=== PATIENT | female | born 1950 | race Caucasian/White ===

== ENCOUNTER 2017-04-25 07:48 | Day surgery (SDC) | payer MEDICARE, MEDICAID ==
[2017-04-21 15:34] LABS: BASOPHILS % (AUTO) 0.7 % (0-1); EOSINOPHILS # (AUTO) 0.3 X10'3 (0-0.9); EOSINOPHILS % (AUTO) 4.6 % (0-6); LYMPHOCYTES % (AUTO) 18.8 % (21-51); MEAN CORPUSCULAR HEMOGLOBIN 29.2 PG (27.0-31.0); MEAN CORPUSCULAR HGB CONC 34.8 % (33.0-36.5); MEAN CORPUSCULAR VOLUME 83.9 FL (78-98); MONOCYTES # (AUTO) 0.4 X10'3 (0-0.9); MONOCYTES % (AUTO) 6.5 % (2-12); NEUTROPHILS # (AUTO) 3.8 X10'3 (1.8-7.7); NEUTROPHILS % (AUTO) 69.4 % (42-75); PRE OP HEMATOCRIT 28.8 % (35.0-45.0); RED BLOOD COUNT 3.43 X10'6 (4.20-5.60); RED CELL DISTRIBUTION WIDTH 15.1 % (11.5-14.5)
[2017-04-21 15:47] LABS: PRE OP PROTIME 10.7 SECONDS (9.0-12.0)
[2017-04-21 15:53] LABS: PRE OP PLATELET COUNT 99 X10'3 (140-440)
[2017-04-21 15:56] LABS: ALBUMIN 3.9 G/DL (3.4-5.0); ALKALINE PHOSPHATASE 155 IU/L (46-116); BLOOD UREA NITROGEN 47 MG/DL (7-18); BUN/CREATININE RATIO 26.1 (6.6-38.0); CHLORIDE 105 MMOL/L (99-107); PRE OP ALT 11 U/L (30-65); PRE OP ANION GAP 13 (8-16); PRE OP AST 6 U/L (10-37); PRE OP BILIRUB, TOTAL 0.3 MG/DL (0.0-1.0); PRE OP POTASSIUM 4.7 MMOL/L (3.4-5.1); PRE OP SODIUM 144 MMOL/L (135-145); TOTAL CARBON DIOXIDE 25.7 MMOL/L (24-32); TOTAL PROTEIN 7.8 G/DL (6.4-8.2); eGFR 28 ML/MIN
[2017-04-21 15:58] LABS: PRE OP GLUCOSE 242 MG/DL (70-104)
[2017-04-21 15:59] LABS: HEMOGLOBIN A1C 6.4 % (4.5-6.2)
[~2017-04-25] VITALS: Ht 154.9 cm; Wt 92.7 kg
[2017-04-25] VITALS (18 sets, daily range): BP systolic 109–140; BP diastolic 57–78
[~2017-04-25 07:48] MED LIST: ALB0.5UD IH; ASPI81TA30 PO; CYCL-1 PO; DOCU100C23 PO; FERR325T39 PO; FLUT1AER INH; FURO40TA4 PO; GABA600T2 PO; GEMF600T3 PO; INSU100V5 SQ; LANTUS SQ; LINA5TAB4 PO; LISI40TA4 PO; LORA1TAB PO; MONT10TA21 PO; MORP60CA18 PO; MSC30T PO; NITR0.4T51 SL; OMEP20TA5 PO; OXCA300T PO; OXYC-658 PO; OXYGEN NS; POTA20TA19 PO; SIMV40TA4 PO; SPIIN IH; TIZA2TAB4 PO; VALA100027 PO; ceFOXitin 1 GM ADDVANTAGE BAG 1,000 MG in normal saline 100ml IV soln 100 ML IV ONE; famotidine 20mg tablet PO ONE
[2017-04-25] MEDS ORDERED: LIDOcaine 1% (10mg/ml) 2ml vial ONE (08:18)
[2017-04-25] MEDS ORDERED: ceFAZolin 1000mg inj ONE (08:57)
[2017-04-25] MEDS ORDERED: vasoPRESSIN 20 units/ml inj. ONE (08:57)
[2017-04-25] MEDS ORDERED: clindamycin phosphate 40gm vag cream ONE (08:57)
[2017-04-25] MEDS ORDERED: ringers solution, lacted 1,000 ML IV SCH ×2 (09:19→10:29)
[2017-04-25] MEDS ORDERED: fentaNYL/PF 50MCG/1 ML 2ML syringe ONE (09:49)
[2017-04-25] MEDS ORDERED: MIDAZolam 5mg/5ml vial ONE (09:49)
[2017-04-25] MEDS ORDERED: proCHLORperazine 10 MG/2 ml inj IV PRN (10:30)
[2017-04-25] MEDS ORDERED: meperidine/PF 25mg/ml syringe IV PRN ×3 (10:30)
[2017-04-25] MEDS ORDERED: morphine 2 MG/ML inj. syringe IV PRN ×2 (10:30)
[2017-04-25] MEDS ORDERED: ondansetron/PF 4mg/2ml inj IV PRN ×2 (10:30→11:15)
[2017-04-25] MEDS ORDERED: fluoroscein sod 10% (100mg/ml) 5ml vial ONE (10:52)
[2017-04-25] MEDS ORDERED: ketorolac tromethamine 15mg/ml inj. IV PRN (11:15)
[2017-04-25] MEDS ORDERED: temazepam 15mg capsule PO PRN (11:15)
[2017-04-25] MEDS ORDERED: magnesium hydroxide 30ml (MOM) UD suspension PO PRN (11:15)
[2017-04-25] MEDS ORDERED: HYDROcodone/acetaminophen 5mg/325mg tablet PO PRN (11:15)
[2017-04-25] MEDS ORDERED: normal saline 500ml IV soln 500 ML IV PRN (11:15)
[2017-04-25] MEDS ORDERED: diphenhydrAMINE 50 mg/ml inj IV PRN (11:15)
[2017-04-25] MEDS ORDERED: CADD PCA waste documentation MC PRN (11:15)
[2017-04-25] MEDS ORDERED: naloxone 0.4 mg/ml inj IV PRN (11:15)
[2017-04-25] MEDS ORDERED: albuterol 2.5 MG/3 ML nebule NEB PRN (11:15)
[2017-04-25] MEDS: HYDROmorphone/NS 1 mg/ml CADD 50 ML IV SCH ×7 (12:56→23:00)
[2017-04-25] MEDS: simethicone 80mg chew tab PO SCH ×2 (13:00→17:10)
[2017-04-25] MEDS: ringers solution, lacted 1,000 ML IV SCH ×2 (13:25→20:36)
[2017-04-25] MEDS ORDERED: glucagon, human recombinant 1mg kit SUBCUT PRN (13:35)
[2017-04-25] MEDS ORDERED: insulin Lispro (HumaLOG) vial - multi-dose SQ SCH (13:35)
[2017-04-25] MEDS ORDERED: MESSAGE TO PHARMACY PO ONE (13:35)
[2017-04-25] MEDS ORDERED: dextrose ORAL solution 15 GM/59 ML bottle PO PRN (13:35)
[2017-04-25] MEDS ORDERED: dextrose 50%-water 50ml dispensing syringe IV PRN ×2 (13:35)
[2017-04-25] MEDS ORDERED: dextrose 50%-water 50ml dispensing syringe IV ONE (13:39)
[2017-04-25] MEDS: dextrose ORAL solution 15 GM/59 ML bottle PO PRN ×2 (17:16→17:30)
[2017-04-25] MEDS ORDERED: insulin glargine (Lantus) pen - multi-dose SQ SCH (21:00)
[2017-04-25] MEDS: ofloxacin 0.33% 5ml ophthalmic drops LEFTEYE SCH (22:10)
[2017-04-26] VITALS: BP 132/60
[2017-04-26] MEDS: HYDROmorphone/NS 1 mg/ml CADD 50 ML IV SCH ×4 (01:00→07:00)
[2017-04-26] MEDS: ringers solution, lacted 1,000 ML IV SCH ×2 (03:54→11:12)
[2017-04-26 05:52] LABS: BASOPHILS % (AUTO) 0.2 % (0-1); EOSINOPHILS # (AUTO) 0.2 X10'3 (0-0.9); EOSINOPHILS % (AUTO) 2.8 % (0-6); HEMOGLOBIN 9.7 g/dl (12.0-16.0); LYMPHOCYTES # (AUTO) 0.8 X10'3 (1.1-4.8); LYMPHOCYTES % (AUTO) 11.8 % (21-51); MEAN CORPUSCULAR HEMOGLOBIN 29.3 PG (27.0-31.0); MEAN CORPUSCULAR HGB CONC 34.7 % (33.0-36.5); MEAN CORPUSCULAR VOLUME 84.6 FL (78-98); MEAN PLATELET VOLUME 8.9 FL (7.4-10.4); MONOCYTES # (AUTO) 0.4 X10'3 (0-0.9); MONOCYTES % (AUTO) 6.4 % (2-12); NEUTROPHILS % (AUTO) 78.8 % (42-75); PLATELET COUNT 86 X10'3 (140-440); RED BLOOD COUNT 3.31 X10'6 (4.20-5.60); RED CELL DISTRIBUTION WIDTH 14.5 % (11.5-14.5); WHITE BLOOD COUNT 6.4 X10'3 (4.5-11.0)
[2017-04-26 06:05] LABS: ALBUMIN 3.4 G/DL (3.4-5.0); ANION GAP 8 (8-16); BLOOD UREA NITROGEN 29 MG/DL (7-18); BUN/CREATININE RATIO 24.2 (6.6-38.0); CALCIUM 8.9 MG/DL (8.5-10.1); CHLORIDE 106 MMOL/L (99-107); GLUCOSE 104 MG/DL (70-104); SODIUM 139 MMOL/L (135-145); TOTAL CARBON DIOXIDE 25.2 MMOL/L (24-32); eGFR 45 ML/MIN
[2017-04-26] MEDS: simethicone 80mg chew tab PO SCH ×2 (07:12→12:27)
[2017-04-26] MEDS: ofloxacin 0.33% 5ml ophthalmic drops LEFTEYE SCH ×2 (07:14→12:30)
[2017-04-26] MEDS ORDERED: acetaminophen 325mg tablet PO PRN (07:30)
[2017-04-26 07:35] VITALS: BP 139/66
[2017-04-26] MEDS ORDERED: nitroGLYCERIN 0.4mg SUBLingual tab SL PRN (08:15)
[2017-04-26] MEDS ORDERED: non-formulary drug (Albuterol Sulfate Nebs* (Proventil Nebs*) 2.5 MG) IH PRN (08:15)
[2017-04-26] MEDS ORDERED: LORazepam 1 MG tablet PO PRN (08:15)
[2017-04-26] MEDS: HYDROcodone/acetaminophen 5mg/325mg tablet PO PRN ×2 (10:17→14:39)
[2017-04-26] MEDS: ipratropium 0.5 MG/2.5ML nebule IH SCH ×2 (10:35→14:20)
[2017-04-26 12:10] VITALS: BP 123/54
[2017-04-26] MEDS ORDERED: ferrous sulfate 325mg tablet PO SCH (13:00)
[2017-04-26] MEDS ORDERED: gabapentin 400mg capsule PO SCH ×2 (13:00→21:00)
[2017-04-26] MEDS ORDERED: tizanidine 4mg tablet PO SCH (16:00)
[2017-04-26] MEDS ORDERED: oxcarbazepine 150mg tablet PO SCH (20:00)
[2017-04-26] MEDS ORDERED: docusate sod 100mg capsule PO SCH (20:00)
[2017-04-26] MEDS ORDERED: insulin glargine (Lantus) pen - multi-dose SQ SCH (20:00)
[2017-04-26] MEDS ORDERED: gemfibrozil 600mg tablet PO SCH (20:00)
[2017-04-26] MEDS ORDERED: atorvastatin 20mg tablet PO SCH (21:00)
[2017-04-27] MEDS ORDERED: montelukast 10mg tablet PO SCH (08:00)
[2017-04-27] MEDS ORDERED: potassium Cl 20 mEq SR tablet PO SCH (08:00)
[2017-04-27] MEDS ORDERED: furosemide 40mg tablet PO SCH (08:00)
[2017-04-27] MEDS ORDERED: pantoprazole 40mg Tablet.DR PO SCH (08:00)
[2017-04-27] MEDS ORDERED: linagliptin 5mg tablet PO SCH (08:00)
== END 2017-04-26 18:30 | disposition home or self-care (01) ==
LOC: PAS 07:48 → SUR 3N 13:09 → PAS 04-26 18:30
PROVIDERS: ATTEND Specialist
DX: N81.11 Cystocele, midline (principal); N81.6 Rectocele; N39.3 Stress incontinence (female) (male); F41.9 Anxiety disorder, unspecified; E66.9 Obesity, unspecified; Z87.891 Personal history of nicotine dependence; J44.9 Chronic obstructive pulmonary disease, unspecified; I12.9 Hypertensive chronic kidney disease with stage 1 through stage 4 chronic kidney disease, or unspecified chronic kidney disease; E11.22 Type 2 diabetes mellitus with diabetic chronic kidney disease; N18.3 Chronic kidney disease, stage 3 (moderate); K21.9 Gastro-esophageal reflux disease without esophagitis; Z79.4 Long term (current) use of insulin; Z68.38 Body mass index [BMI] 38.0-38.9, adult
CPT/HCPCS: 36415; 57260; 57288; 80048; 80053; 82948; 83036; 85025; 85610; 85730; 86885; 86900; 86901; 87070; 94640; 94760; A4315; A4355; C1771; J0690; J0694; J1170; J2250; J3010; J3490; J7030; J7120; 88302; A6250; A7000; J1815

== ENCOUNTER 2017-08-23 15:32 | Emergency (ER) | payer MEDICARE, MEDICAID ==
[~2017-08-23] VITALS: Ht 154.9 cm; Wt 95.0 kg
[~2017-08-23 15:32] MED LIST changes: -LISI40TA4 PO; -ceFOXitin 1 GM ADDVANTAGE BAG 1,000 MG in normal saline 100ml IV soln 100 ML IV ONE; -famotidine 20mg tablet PO ONE
[2017-08-23] MEDS ORDERED: NAPR-56 PO (16:45)
[2017-08-23] MEDS ORDERED: orphenadrine citrate 60mg/2ml inj. IM ONE (16:45)
[2017-08-23] MEDS ORDERED: ketorolac trometh inj. 60 MG/2 ML VIAL IM ONE (16:45)
[2017-08-23] MEDS ORDERED: CYCL-1 PO (16:45)
[2017-08-23 17:47] VITALS: BP 145/69
== END 2017-08-23 17:58 | disposition home or self-care (01) ==
LOC: ER 15:33
DX: M77.11 Lateral epicondylitis, right elbow (principal); M77.9 Enthesopathy, unspecified; J44.9 Chronic obstructive pulmonary disease, unspecified; E11.9 Type 2 diabetes mellitus without complications; G89.29 Other chronic pain; Z98.890 Other specified postprocedural states; Z79.82 Long term (current) use of aspirin; Z79.899 Other long term (current) drug therapy; Z79.4 Long term (current) use of insulin
CPT/HCPCS: 96372; 99284; J1885; J2360